=== PATIENT | male | born 1940 | race Caucasian/White ===

== ENCOUNTER → 2018-07-11 | Outpatient (CLI) | payer MEDICARE | END | disposition home or self-care (01) | LOC: RAD 14:29 | PROVIDERS: ATTEND Internal Medicine | DX: R05 Cough (principal) | CPT/HCPCS: 71046 ==

== ENCOUNTER 2020-06-24 10:26 | Emergency (ER) | payer MEDICARE ==
[~2020-06-24] VITALS: Ht 188 cm; Wt 120.0 kg
[2020-06-24] MEDS ORDERED: KETOROLAC 30 MG/1 ML ONE (11:21)
--- NOTE | 2020-06-24 11:22 | NUR ---
Pt off dept with remberto to radiology at this time. Med brought to bedside as ordered and awaiting pt return for admin.
[2020-06-24] MEDS ORDERED: KETOROLAC 30 MG/1 ML IM ONE (11:30)
[2020-06-24] MEDS ORDERED: PLEASE ENTER ALLERGIES MC SCH (11:30)
--- NOTE | 2020-06-24 11:48 | NUR ---
Pt back from radiology. Medication given with aseptic technique and med rec completed.
[2020-06-24] MEDS ORDERED: TAMS-11 PO (11:57)
[2020-06-24] MEDS ORDERED: ATOR20TA37 PO (11:57)
[2020-06-24] MEDS ORDERED: trintellix PO (11:57)
[2020-06-24] MEDS ORDERED: VALP250C59 PO ×3 (11:57→11:58)
[2020-06-24] MEDS ORDERED: OXYB5TAB10 PO (11:57)
[2020-06-24] MEDS ORDERED: LOSA25TA25 PO (11:57)
[2020-06-24] MEDS ORDERED: FINA5TAB4 PO (11:57)
[2020-06-24] MEDS ORDERED: AMLO-150 PO (11:57)
[2020-06-24] MEDS ORDERED: BUPR150T13 PO (11:57)
[2020-06-24] MEDS ORDERED: METF500T17 PO (11:57)
[2020-06-24] MEDS ORDERED: PIOG30TA67 PO (11:57)
[2020-06-24 12:03] LABS: BASOPHILS % (AUTO) 0 % (0-1); EOSINOPHILS % (AUTO) 2 % (1-7); LYMPHOCYTES % (AUTO) 35 % (22-44); MEAN CORPUSCULAR HEMOGLOBIN 32.2 pg (27.5-34.5); MEAN CORPUSCULAR HGB CONC 33.9 g/dL (33.2-36.2); MEAN PLATELET VOLUME 9.5 fL (7.4-10.4); MONOCYTES % (AUTO) 9 % (2-9); NEUTROPHILS % (AUTO) 54 % (42-75); PLATELET COUNT 158 x10^3/uL (130-400); RED BLOOD COUNT 4.43 x10^6/uL (4.38-5.82); RED CELL DISTRIBUTION WIDTH 14.3 % (9.4-14.8)
[2020-06-24 12:04] LABS: MD NO
[2020-06-24 12:13] LABS: CHLORIDE 109 mmol/L (98-107)
[2020-06-24 12:17] LABS: ALBUMIN 3.5 g/dL (3.4-5.0); ANION GAP 8 mmol/L (5-15); CALCIUM 8.9 mg/dL (8.5-10.1)
--- NOTE | 2020-06-24 12:27 | NUR ---
Pt still has moderate pain on reassessment after manager intermediate. notified.
[2020-06-24 13:17] VITALS: BP 154/77
== END 2020-06-24 13:19 | disposition home or self-care (01) ==
LOC: ED 12:03
DX: G89.11 Acute pain due to trauma (principal); M25.551 Pain in right hip; M25.552 Pain in left hip; M54.5 Low back pain; M25.531 Pain in right wrist; Z88.0 Allergy status to penicillin; Z91.041 Radiographic dye allergy status; W18.30XA Fall on same level, unspecified, initial encounter; Y93.89 Activity, other specified; Y92.89 Other specified places as the place of occurrence of the external cause; Y99.8 Other external cause status
CPT/HCPCS: 29125; 36415; 72110; 73110; 73502; 80048; 82040; 85025; 96372; 99285; J1885